=== PATIENT | male | born 1985 | race Caucasian/White ===

== ENCOUNTER 2019-06-24 10:22 | Day surgery (SDC) | payer BC ==
[~2019-06-24] VITALS: Ht 188 cm; Wt 102.5 kg
[2019-06-24 11:20] VITALS: BP 128/82; PULSE 66; TEMP 97.4
[2019-06-24] MEDS ORDERED: TYLENOL 500MG500 MG PO (11:49)
[2019-06-24] MEDS ORDERED: NORCO 325 MG-51 TAB PO (13:09)
[2019-06-24 13:36] VITALS: TEMP 98.1
[2019-06-24 13:45] VITALS: BP 138/90; PULSE 58
--- NOTE | 2019-06-24 13:45 | NUR ---
Patient returns to room 1 per cart from PACU accompanied by Heidi JOAQUIN and is awake and alert. Temp 97.7 and room air sats 97%. IV fluids infusing #20G RW. Abdominal dressing with shadow of bloody drainage noted. Denies pain or nausea. Siderails up x2 and call light in reach. Allowed to rest. Family at bedside.
[2019-06-24 14:00] VITALS: BP 139/82; PULSE 63
--- NOTE | 2019-06-24 14:00 | NUR ---
Continues to deny pain or nausea. Family in room.
--- NOTE | 2019-06-24 14:10 | NUR ---
Assisted up to the bathroom and voids. Tolerates activity well. IV to INT.
[2019-06-24 14:15] VITALS: BP 127/89; PULSE 60
--- NOTE | 2019-06-24 14:15 | NUR ---
Eating muffin and drinking Pepsi. No further increase in drainage. Family remains in the room.
[2019-06-24 14:30] VITALS: BP 124/69; PULSE 69
--- NOTE | 2019-06-24 14:30 | NUR ---
States that he is becoming more sore from incisional pain.
--- NOTE | 2019-06-24 14:39 | NUR ---
Medicated with [place] 5mg tab for incisional soreness and prior to discharge.
--- NOTE | 2019-06-24 14:55 | NUR ---
IV discontinued and patient is able to dress self.
--- NOTE | 2019-06-24 15:00 | NUR ---
Given dismissal instructions and voices understanding of these. Provided script for [place] and office number for questions and concerns.
--- NOTE | 2019-06-24 15:04 | NUR ---
Patient dismissed to home driven by friend Elli and taken to the front door per wheelchair and assisted into vehicle with all dismissal instructions in hand.
== END 2019-06-24 15:04 | disposition home or self-care (01) ==
LOC: SDCO 10:22
DX: K43.6 Other and unspecified ventral hernia with obstruction, without gangrene (principal); F17.210 Nicotine dependence, cigarettes, uncomplicated; Z88.8 Allergy status to other drugs, medicaments and biological substances; Z80.1 Family history of malignant neoplasm of trachea, bronchus and lung; Z80.0 Family history of malignant neoplasm of digestive organs
CPT/HCPCS: J0330; J0690; J1100; J1885; J2405; J2704; J3010; J7120